=== PATIENT | male | born 1960 | race Caucasian/White ===

== ENCOUNTER 2016-11-25 14:34 | Emergency (ER) | payer OTHER ==
[~2016-11-25] VITALS: Ht 188 cm; Wt 86.3 kg
[~2016-11-25 14:34] MED LIST: ACID REDUCER 1150 MG PO; ADVAIR 250/501 DISK IH; ALDACTONE50 MG PO; AMLODIPINE BESYL5 MG PO; ANAPROX275 M1 PO; ASPIR 8181 M1 PO; ASPIRIN E.C.81 M2 PO; ASPIRIN EC325 M1 PO; ATORVASTATIN CA40 MG PO; ATROVENT H200 INHALA IH; Anusol HC,Anucort-HC PR; B-12 DOTS500 MCG; BACTRIM,SEPT1 TABLET PO; BENTYL20 MG PO; CARAFATE1 GM PO; CHLORDIAZEPOXID25 MG PO; CIPRO500 MG PO; CYANOCOBALAM1000 MC1 PO; Colace PO; DILANTIN100 MG PO; DOXYCYCLINE HY100 M3 PO; Duragesic TD; EMS Nitrostat 0.4 mg SL; FAMOTIDINE PO; FAMOTIDINE20 MG PO; FERRONATE325 MG; FERRONATE325 MG PO; FERROUS GLUCON324 M2 PO; FOLIC ACID1 MG PO; FOLVITE1 M1 PO; FOLVITE1 MG NG; Flagyl PO; GABAPENTIN300 MG PO; GABAPENTIN400 MG PO; HABITROL,NICODE21 MG TD; HYDROCHLOROTHIA25 MG PO; Habitrol,Nicoderm CQ TD; INDOMETHACIN25 MG PO; KEPPRA250 MG PO; KLOR-CON M2020 MEQ PO; LACTINEX,FLO1 PACKET PO; LEVAQUIN500 MG PO; LEVETIRACETAM250 MG PO; LEVETIRACETAM500 MG PO; LEVO-T200 MCG PO; LEVOTHROID,SYN0.1 MG PO; LEVOTHYROXINE100 MCG PO; LEVOTHYROXINE150 MCG PO; LEVOTHYROXINE175 MCG PO; LEVOTHYROXINE200 MC1 PO; LIBRIUM25 MG PO; LIPITOR40 MG PO; LISINOPRIL10 MG PO; LISINOPRIL20 MG PO; LOPRESSOR25 MG PO; LOPRESSOR50 MG PO; LORAZEPAM2 MG PO; Levothroid,Synthroid PO; Lopressor PO; MAG-OXIDE400 MG PO; METOPROLOL TART25 MG PO; METOPROLOL TART50 MG PO; MICRO-K10 ME1 PO; MOBIC15 MG PO; MOTRIN800 MG PO; MULTI-DAY VITA1 EACH PO; Morphine Sulfate IV; NAPROXEN250 M1 PO; NEURONTIN400 MG PO; NICODERM CQ1 EAC1 TD; NICOTINE PATCH1 EAC2 TD; NITROGLYCERIN0.4 MG SL; NITROSTAT0.4 MG SL; NORVASC10 MG PO; NORVASC5 MG PO; Neurontin PO; OMEPRAZOLE20 M2 PO; OMEPRAZOLE20 MG PO; OMEPRAZOLE40 M1 PO; PANTOPRAZOLE SO40 MG PO; PEPCID20 MG PO; PLAVIX75 MG PO; PRAVACHOL10 MG PO; PRAVACHOL20 MG PO; PRAVASTATIN SOD20 MG PO; PREDNISONE10 MG PO; PREVACID SOLUTA30 M1 PO; PRILOSEC40 MG PO; PRINIVIL10 MG PO; PRINIVIL20 MG PO; PROAIR; PROMETHAZINE HC25 M1 PO; PROTONIX40 MG PO; Pepcid PO; Percocet 5/325,Endoc PO; Pravachol PO; RANITIDINE HCL150 M1 PO; SILVADENE20 GM TP; SIMVASTATIN40 M1 PO; SIMVASTATIN40 MG PO; SPIRIVA1 INHALATI IH; SPIRONOLACTONE50 MG PO; SSD25GM TP; SUCRALFATE1 GM PO; SYNTHROID200 MCG PO; THIAMINE HCL100 MG PO; Theragran PO; Thiamine,Vitamin B1 PO; Tums,OsCal PO; ULTRAM50 MG PO; VENTOLIN HFA18 GM IH; VIT D2; VITAMIN B-1100 MG PO; ZANTAC150 MG PO; ZESTRIL,PRINIVI10 M1 PO; ZESTRIL,PRINIVI10 MG PO; ZESTRIL10 MG PO; ZESTRIL20 MG PO; ZITHROMAX Z-PA250 MG PO; ZOFRAN ODT4 MG PO; ZYVOX600 MG PO; Zestril,Prinivil PO; [UNRECOGNIZED DRUG - OTHER] PO
[2016-11-25 17:26] LABS: HEMATOCRIT 34.9 % (38.0-50.0); MCH 34.9 PG (29.0-34.0); MCHC 34.1 G/DL (30.0-36.0); MCV 102.3 FL (86-99); MEAN PLAT.VOLUME 9.1 uM^3 (9.0-12.4); PLATELET COUNT 302 K/uL (156-360); RBC DIS.WIDTH-CV 13.6 % (11.8-14.6); RBC DIS.WIDTH-SD 49.6 % (39-53); RED BLOOD COUNT 3.41 M/uL (4.00-5.50); WHITE BLOOD COUNT 7.8 K/uL (4.1-10.2)
[2016-11-25 17:37] LABS: CHLORIDE 98 mEq/L (99-109); POTASSIUM 3.9 mEq/L (3.7-5.4); SODIUM 139 mEq/L (136-147)
[2016-11-25 17:39] LABS: GLUCOSE 73 mg/dL (70-99)
[2016-11-25 17:40] LABS: ANION GAP 16 MEQ/L (2-14)
[2016-11-25 17:41] LABS: TOTAL BILIRUBIN 0.8 mg/dL (0.0-1.0)
[2016-11-25 17:43] LABS: ALKALINE PHOSPHATASE 135 IU/L (3-129); GFR ESTIMATE (CALCULATED) > 59 mL/min/
[2016-11-25 17:44] LABS: UREA NITROGEN (BUN) 13 mg/dL (9-23)
[2016-11-25 17:46] LABS: LIPASE 24 U/L (1.0-51.0)
[2016-11-25] MEDS ORDERED: CIPRO500 MG PO (21:37)
[2016-11-25] MEDS ORDERED: ULTRAM50 MG PO (21:37)
[2016-11-25] MEDS ORDERED: FLAGYL500 MG PO (21:37)
[2016-11-25 22:08] VITALS: BP 129/82
== END 2016-11-25 22:09 | disposition home or self-care (01) ==
LOC: EME → EDBD 14:34 → EME 22:09
PROVIDERS: Physician Assistant
DX: K52.9 Noninfective gastroenteritis and colitis, unspecified (principal); M79.606 Pain in leg, unspecified; R06.02 Shortness of breath
CPT/HCPCS: 71020; 74176; 80053; 81003; 82140; 83690; 83880; 85027; 93970; 99281; 99284

== ENCOUNTER 2016-12-23 19:44 | Emergency (ER) | payer OTHER ==
[~2016-12-23] VITALS: Ht 188 cm; Wt 68.2 kg
[~2016-12-23 19:44] MED LIST changes: +FLAGYL500 MG PO
[2016-12-23] MEDS ORDERED: ULTRAM50 MG PO (23:48)
[2016-12-24 00:03] VITALS: BP 117/78
== END 2016-12-24 00:03 | disposition home or self-care (01) ==
LOC: EME 19:44
DX: M79.604 Pain in right leg (principal); M79.605 Pain in left leg; G89.29 Other chronic pain
CPT/HCPCS: 93971; 99281; 99283

== ENCOUNTER 2017-02-02 09:15 | Observation (INO) | payer OTHER ==
[~2017-02-02] VITALS: Ht 188 cm; Wt 84.5 kg
[2017-02-02 09:43] LABS: BASOPHIL COUNT 0.1 K/uL (0-0.1); EOSINOPHIL (%) 1.2 % (0-5); EOSINOPHIL COUNT 0.1 K/uL (0-0.3); IMMATURE GRANULOCYTE (%) 0.4 % (0.0-0.7); LYMPHOCYTE COUNT 1.6 K/uL (1.0-2.8); MCH 34.2 PG (29.0-34.0); MCHC 33.7 G/DL (30.0-36.0); MCV 101.7 FL (86-99); MONOCYTE (%) 9.3 % (3-12); MONOCYTE COUNT 0.7 K/uL (0-0.8); PLATELET COUNT 173 K/uL (156-360); RBC DIS.WIDTH-CV 13.1 % (11.8-14.6); RBC DIS.WIDTH-SD 49.4 % (39-53); RED BLOOD COUNT 4.03 M/uL (4.00-5.50); WHITE BLOOD COUNT 7.4 K/uL (4.1-10.2)
[2017-02-02 10:11] LABS: ANION GAP 13 MEQ/L (2-14); CHLORIDE 99 MEQ/L (99-109); SAMPLE HEMOLYSIS CHECK 0; SAMPLE ICTERIC CHECK 0; SAMPLE LIPEMIA CHECK 0; SODIUM 135 MEQ/L (136-147)
[2017-02-02 10:16] LABS: GFR ESTIMATE (CALCULATED) > 59 mL/min/; GLUCOSE 100 mg/dL (70-99); UREA NITROGEN (BUN) 11 mg/dL (9-23)
[2017-02-02 10:21] LABS: TROP-I INTERPRETATION NEGATIVE; TROPONIN-I < 0.01 ng/mL (0.0-0.30)
[2017-02-02] MEDS ORDERED: TYLENOL REGULA325 MG PO (11:42)
[2017-02-02 12:08] VITALS: BP 161/77
[2017-02-02 12:51] LABS: TROP-I INTERPRETATION NEGATIVE; TROPONIN-I < 0.01 ng/mL (0.0-0.30)
[2017-02-02 16:05] VITALS: BP 122/58
[2017-02-02 21:15] LABS: TROP-I INTERPRETATION NEGATIVE; TROPONIN-I 0.01 ng/mL (0.0-0.30)
[2017-02-02 23:45] VITALS: BP 109/53
[2017-02-03 04:47] VITALS: BP 91/52
[2017-02-03 07:54] VITALS: BP 92/55
[2017-02-03] MEDS ORDERED: LOPRESSOR25 MG PO (08:42)
[2017-02-03] MEDS ORDERED: ASPIRIN325 MG PO (08:42)
[2017-02-03] MEDS ORDERED: LISINOPRIL10 MG PO (08:42)
[2017-02-03 10:08] VITALS: BP 93/50
[2017-02-03 10:30] VITALS: BP 105/56
== END 2017-02-03 10:48 | disposition home or self-care (01) ==
LOC: EME → EDBD 09:15 → EME 09:15 → 5WEST 11:05 → EDOF 11:05 → 5WEST 11:57
PROVIDERS: Emergency Medicine; Hospitalist
DX: R07.89 Other chest pain (principal); K70.30 Alcoholic cirrhosis of liver without ascites; F10.10 Alcohol abuse, uncomplicated; I11.0 Hypertensive heart disease with heart failure; I50.32 Chronic diastolic (congestive) heart failure; J44.9 Chronic obstructive pulmonary disease, unspecified; N62 Hypertrophy of breast; I25.10 Atherosclerotic heart disease of native coronary artery without angina pectoris; E03.9 Hypothyroidism, unspecified; E78.5 Hyperlipidemia, unspecified; F20.9 Schizophrenia, unspecified; G40.909 Epilepsy, unspecified, not intractable, without status epilepticus; Z95.5 Presence of coronary angioplasty implant and graft; F17.210 Nicotine dependence, cigarettes, uncomplicated
CPT/HCPCS: 71010; 80048; 84484; 85025; 93005; 94640; 94640 76; 99202; 99281; 99285; G0378; J1650

== ENCOUNTER 2017-03-26 18:10 | Emergency (ER) | payer OTHER ==
[~2017-03-26] VITALS: Ht 188 cm; Wt 82.0 kg
[~2017-03-26 18:10] MED LIST changes: +ASPIRIN325 MG PO; +TYLENOL REGULA325 MG PO
[2017-03-26 19:51] LABS: BASOPHIL COUNT 0.1 K/uL (0-0.1); EOSINOPHIL (%) 0.1 % (0-5); HEMATOCRIT 43.1 % (38.0-50.0); IMMATURE GRANULOCYTE (%) 0.4 % (0.0-0.7); INSTRUMENT ABS NEUTROPHIL CT 5.4 K/uL; LYMPHOCYTE COUNT 1.3 K/uL (1.0-2.8); MCH 32.9 PG (29.0-34.0); MCHC 34.3 G/DL (30.0-36.0); MCV 95.8 FL (86-99); MEAN PLAT.VOLUME 9.5 uM^3 (9.0-12.4); MONOCYTE (%) 5.9 % (3-12); MONOCYTE COUNT 0.4 K/uL (0-0.8); NEUTROPHIL (%) 74.5 % (45-76); NEUTROPHIL COUNT 5.4 K/uL (1.8-6.4); PLATELET COUNT 206 K/uL (156-360); RBC DIS.WIDTH-CV 11.9 % (11.8-14.6); RBC DIS.WIDTH-SD 41.8 % (39-53); WHITE BLOOD COUNT 7.3 K/uL (4.1-10.2)
[2017-03-26 20:01] LABS: CHLORIDE 97 mEq/L (99-109); POTASSIUM 5.3 mEq/L (3.7-5.4); SODIUM 139 mEq/L (136-147)
[2017-03-26 20:03] LABS: GLUCOSE 66 mg/dL (70-99)
[2017-03-26 20:04] LABS: ANION GAP 19 MEQ/L (2-14)
[2017-03-26 20:05] LABS: TOTAL BILIRUBIN 0.8 mg/dL (0.0-1.0)
[2017-03-26 20:06] LABS: ALKALINE PHOSPHATASE 147 IU/L (3-129); SERUM ETHYL ALCOHOL 138 mg/dL
[2017-03-26 20:07] LABS: GFR ESTIMATE (CALCULATED) > 59 mL/min/
[2017-03-26 20:08] LABS: UREA NITROGEN (BUN) 18 mg/dL (9-23)
[2017-03-26 20:10] LABS: LIPASE 25 U/L (1.0-51.0)
[2017-03-26] MEDS ORDERED: CIPRO500 MG PO (22:10)
[2017-03-26] MEDS ORDERED: MIRALAX17 GM PO (22:11)
[2017-03-26 22:17] LABS: ADD MIUA? NO; BILIRUBIN NEGATIVE; BLOOD NEGATIVE; COLOR YELLOW ((YELLOW)); GLUCOSE (STRIP) NEGATIVE; KETONES 80; LEUKOCYTES NEGATIVE; NITRITE NEGATIVE; PROTEIN (STRIP) NEGATIVE; SPECIFIC GRAVITY 1.028 (1.000-1.030); UCUL ADDED? NO
[2017-03-26 22:37] VITALS: BP 139/73
== END 2017-03-26 22:38 | disposition home or self-care (01) ==
LOC: EME 18:10
PROVIDERS: Emergency Medicine
DX: F10.129 Alcohol abuse with intoxication, unspecified (principal); K52.9 Noninfective gastroenteritis and colitis, unspecified; Y90.6 Blood alcohol level of 120-199 mg/100 ml; J45.909 Unspecified asthma, uncomplicated; G40.909 Epilepsy, unspecified, not intractable, without status epilepticus; I25.2 Old myocardial infarction; I10 Essential (primary) hypertension; F17.200 Nicotine dependence, unspecified, uncomplicated; E78.5 Hyperlipidemia, unspecified; Z86.73 Personal history of transient ischemic attack (TIA), and cerebral infarction without residual deficits; Z88.0 Allergy status to penicillin; Z90.49 Acquired absence of other specified parts of digestive tract
CPT/HCPCS: 71260; 74177; 80053; 81003; 83605; 83690; 85025; 99281; 99285; G0480; J2405; J3010; J7030

== ENCOUNTER 2017-05-04 07:13 | Emergency (ER) | payer OTHER ==
[~2017-05-04] VITALS: Ht 188 cm; Wt 81.3 kg
[~2017-05-04 07:13] MED LIST changes: +MIRALAX17 GM PO
[2017-05-04 07:59] LABS: HEMATOCRIT 42.7 % (38.0-50.0); MCH 33.3 PG (29.0-34.0); MCHC 34.9 G/DL (30.0-36.0); MCV 95.3 FL (86-99); MEAN PLAT.VOLUME 10.2 uM^3 (9.0-12.4); PLATELET COUNT 102 K/uL (156-360); RBC DIS.WIDTH-CV 12.6 % (11.8-14.6); RBC DIS.WIDTH-SD 44.4 % (39-53); RED BLOOD COUNT 4.48 M/uL (4.00-5.50); WHITE BLOOD COUNT 8.3 K/uL (4.1-10.2)
[2017-05-04 08:14] LABS: CHLORIDE 89 mEq/L (99-109); POTASSIUM 4.2 mEq/L (3.7-5.4); SODIUM 132 mEq/L (136-147)
[2017-05-04 08:16] LABS: GLUCOSE 75 mg/dL (70-99)
[2017-05-04 08:17] LABS: ANION GAP 27 MEQ/L (2-14)
[2017-05-04 08:18] LABS: PROTHROMBIN TIME 11.1 SEC (10.2-12.9); TOTAL BILIRUBIN 1.9 mg/dL (0.0-1.0)
[2017-05-04 08:19] LABS: ALKALINE PHOSPHATASE 164 IU/L (3-129); SERUM ETHYL ALCOHOL 73 mg/dL
[2017-05-04 08:20] LABS: GFR ESTIMATE (CALCULATED) > 59 mL/min/; PTT 23.4 SEC (25-37)
[2017-05-04 08:21] LABS: UREA NITROGEN (BUN) 26 mg/dL (9-23)
[2017-05-04 08:23] LABS: LIPASE 38 U/L (1.0-51.0)
[2017-05-04] MEDS ORDERED: ZOFRAN4 MG PO (10:18)
[2017-05-04 12:20] VITALS: BP 132/75
== END 2017-05-04 12:21 | disposition home or self-care (01) ==
LOC: EME → EDBD 07:13 → EME 07:13
PROVIDERS: Emergency Medicine
DX: R11.10 Vomiting, unspecified (principal); F10.10 Alcohol abuse, uncomplicated; K74.60 Unspecified cirrhosis of liver; Y90.3 Blood alcohol level of 60-79 mg/100 ml; I25.2 Old myocardial infarction; E03.9 Hypothyroidism, unspecified; J45.909 Unspecified asthma, uncomplicated; E78.5 Hyperlipidemia, unspecified; I10 Essential (primary) hypertension; Z86.73 Personal history of transient ischemic attack (TIA), and cerebral infarction without residual deficits; Z95.5 Presence of coronary angioplasty implant and graft; F17.200 Nicotine dependence, unspecified, uncomplicated; K21.9 Gastro-esophageal reflux disease without esophagitis; Z88.0 Allergy status to penicillin
CPT/HCPCS: 74177; 80053; 83690; 85027; 85610; 85730; 99281; 99285; G0480; J1630; J2405; J7030

== ENCOUNTER 2017-09-01 17:54 | Emergency (ER) | payer OTHER ==
[~2017-09-01] VITALS: Ht 188 cm; Wt 98.5 kg
[~2017-09-01 17:54] MED LIST changes: +ZOFRAN4 MG PO
[2017-09-01 18:53] LABS: BASOPHIL COUNT 0.1 K/uL (0-0.1); EOSINOPHIL (%) 6.3 % (0-5); EOSINOPHIL COUNT 0.4 K/uL (0-0.3); HEMATOCRIT 36.7 % (38.0-50.0); IMMATURE GRANULOCYTE (%) 0.9 % (0.0-0.7); IMMATURE GRANULOCYTE COUNT 0.1 K/uL; INSTRUMENT ABS NEUTROPHIL CT 2.1 K/uL; LYMPHOCYTE COUNT 2.9 K/uL (1.0-2.8); MCH 34.3 PG (29.0-34.0); MCHC 35.7 G/DL (30.0-36.0); MCV 96.1 FL (86-99); MEAN PLAT.VOLUME 9.5 uM^3 (9.0-12.4); MONOCYTE (%) 5.6 % (3-12); MONOCYTE COUNT 0.3 K/uL (0-0.8); NEUTROPHIL (%) 35.6 % (45-76); NEUTROPHIL COUNT 2.1 K/uL (1.8-6.4); PLATELET COUNT 112 K/uL (156-360); RBC DIS.WIDTH-CV 13.2 % (11.8-14.6); RBC DIS.WIDTH-SD 46.7 % (39-53); RED BLOOD COUNT 3.82 M/uL (4.00-5.50); WHITE BLOOD COUNT 5.9 K/uL (4.1-10.2)
[2017-09-01 19:13] LABS: CHLORIDE 93 mEq/L (99-109); POTASSIUM 3.5 mEq/L (3.7-5.4); SODIUM 135 mEq/L (136-147)
[2017-09-01 19:14] LABS: MAGNESIUM 1.4 mg/dL (1.3-2.7)
[2017-09-01 19:16] LABS: GLUCOSE 149 mg/dL (70-99)
[2017-09-01 19:17] LABS: ANION GAP 17 MEQ/L (2-14); TOTAL BILIRUBIN 0.4 mg/dL (0.0-1.0)
[2017-09-01 19:18] LABS: SERUM ETHYL ALCOHOL 265 mg/dL
[2017-09-01 19:19] LABS: ALKALINE PHOSPHATASE 127 IU/L (3-129); GFR ESTIMATE (CALCULATED) > 59 mL/min/ (58.99-99999)
[2017-09-01 19:20] LABS: UREA NITROGEN (BUN) 14 mg/dL (9-23)
[2017-09-01 19:22] LABS: TROP-I INTERPRETATION NEGATIVE; TROPONIN-I < 0.01 ng/mL (0.0-0.30)
[2017-09-01 19:23] LABS: LIPASE 118 U/L (1.0-51.0)
[2017-09-01 19:36] LABS: ADD MIUA? NO; BILIRUBIN NEGATIVE; BLOOD NEGATIVE; COLOR YELLOW ((YELLOW)); GLUCOSE (STRIP) NEGATIVE; KETONES NEGATIVE; LEUKOCYTES NEGATIVE; NITRITE NEGATIVE; PROTEIN (STRIP) NEGATIVE; SPECIFIC GRAVITY 1.006 (1.000-1.030); UROBILINOGEN 0.2 MG/DL (0.2-1.0)
[2017-09-01] MEDS ORDERED: LEVOTHYROXINE200 MC1 PO (21:16)
[2017-09-01 21:41] VITALS: BP 100/59
== END 2017-09-01 22:21 | disposition home or self-care (01) ==
LOC: EME 17:54
PROVIDERS: Physician Assistant
DX: F10.129 Alcohol abuse with intoxication, unspecified (principal); Y90.8 Blood alcohol level of 240 mg/100 ml or more; Z59.0 Homelessness; E78.5 Hyperlipidemia, unspecified; I10 Essential (primary) hypertension; E03.9 Hypothyroidism, unspecified; I25.2 Old myocardial infarction; K74.60 Unspecified cirrhosis of liver; F20.9 Schizophrenia, unspecified; J45.909 Unspecified asthma, uncomplicated; K21.9 Gastro-esophageal reflux disease without esophagitis; Z86.73 Personal history of transient ischemic attack (TIA), and cerebral infarction without residual deficits; Z95.5 Presence of coronary angioplasty implant and graft; Z88.0 Allergy status to penicillin; F17.200 Nicotine dependence, unspecified, uncomplicated
CPT/HCPCS: 71020; 80053; 81003; 83690; 83735; 84484; 85025; 93005; 99281; 99285; G0480; J7030

== ENCOUNTER 2017-09-20 09:43 | Emergency (ER) | payer OTHER ==
[~2017-09-20] VITALS: Ht 188 cm; Wt 98.0 kg
[2017-09-20 10:08] VITALS: BP 99/61
[2017-09-20] MEDS ORDERED: TEARS AGAIN EYE5 GM BOTH EYES (12:42)
== END 2017-09-20 13:05 | disposition home or self-care (01) ==
LOC: EME 09:43
DX: H04.123 Dry eye syndrome of bilateral lacrimal glands (principal); F10.10 Alcohol abuse, uncomplicated; I10 Essential (primary) hypertension; I25.2 Old myocardial infarction; F17.200 Nicotine dependence, unspecified, uncomplicated; Z79.01 Long term (current) use of anticoagulants; Z79.82 Long term (current) use of aspirin; Z95.5 Presence of coronary angioplasty implant and graft; Z88.0 Allergy status to penicillin
CPT/HCPCS: 99281; 99284

== ENCOUNTER 2017-10-06 15:53 | Emergency (ER) | payer OTHER ==
[~2017-10-06] VITALS: Ht 188 cm; Wt 81.6 kg
[~2017-10-06 15:53] MED LIST changes: +TEARS AGAIN EYE5 GM BOTH EYES
[2017-10-06 16:57] VITALS: BP 160/97
== END 2017-10-06 16:59 | disposition home or self-care (01) ==
LOC: EME 15:53
DX: G89.29 Other chronic pain (principal); M79.604 Pain in right leg; M79.605 Pain in left leg; F10.129 Alcohol abuse with intoxication, unspecified; E78.5 Hyperlipidemia, unspecified; I10 Essential (primary) hypertension; K74.60 Unspecified cirrhosis of liver; I25.2 Old myocardial infarction; F17.200 Nicotine dependence, unspecified, uncomplicated; K21.9 Gastro-esophageal reflux disease without esophagitis; E03.9 Hypothyroidism, unspecified; Z86.73 Personal history of transient ischemic attack (TIA), and cerebral infarction without residual deficits; J45.909 Unspecified asthma, uncomplicated; R56.9 Unspecified convulsions; Z95.5 Presence of coronary angioplasty implant and graft; Z88.0 Allergy status to penicillin
CPT/HCPCS: 99281; 99284; J1885

== ENCOUNTER 2017-10-28 19:08 | Inpatient (IN) | payer OTHER ==
[~2017-10-28] VITALS: Ht 188 cm; Wt 93.8 kg
[2017-10-28 19:55] LABS: HEMATOCRIT 37.6 % (38.0-50.0); HEMOGLOBIN 13.3 G/DL (12.5-16.6); MCH 37.7 PG (29.0-34.0); MCHC 35.4 G/DL (30.0-36.0); MCV 106.5 FL (86-99); PLATELET COUNT 132 K/uL (156-360); RBC DIS.WIDTH-CV 14.6 % (11.8-14.6); RBC DIS.WIDTH-SD 57.7 % (39-53); RED BLOOD COUNT 3.53 M/uL (4.00-5.50); WHITE BLOOD COUNT 6.4 K/uL (4.1-10.2)
[2017-10-28 20:08] LABS: CHLORIDE 99 mEq/L (99-109); SODIUM 140 mEq/L (136-147)
[2017-10-28 20:09] LABS: GLUCOSE 90 mg/dL (70-99)
[2017-10-28 20:13] LABS: CREATININE 1.1 mg/dL (0.6-1.3); GFR ESTIMATE (CALCULATED) > 59 mL/min/ (58.99-99999)
[2017-10-28 20:14] LABS: UREA NITROGEN (BUN) 13 mg/dL (9-23)
[2017-10-28 20:22] LABS: SERUM ETHYL ALCOHOL 317 mg/dL
[2017-10-28 20:54] LABS: APPEARANCE CLEAR ((CLEAR)); BILIRUBIN NEGATIVE; BLOOD NEGATIVE; COLOR YELLOW ((YELLOW)); GLUCOSE (STRIP) NEGATIVE; KETONES NEGATIVE; LEUKOCYTES NEGATIVE; NITRITE NEGATIVE; PROTEIN (STRIP) 30; SPECIFIC GRAVITY 1.014 (1.000-1.030); UCUL ADDED? NO
[2017-10-29 05:24] LABS: TROP-I INTERPRETATION NEGATIVE; TROPONIN-I 0.01 ng/mL (0.0-0.30)
[2017-10-29] MEDS ORDERED: ADVAIR 250/501 DISK IH (09:20)
[2017-10-29] MEDS ORDERED: SPIRIVA18 MCG IH ×2 (09:21→09:22)
[2017-10-29 11:59] VITALS: BP 131/70
[2017-10-29 15:39] VITALS: BP 128/63
[2017-10-29 17:05] LABS: CHLORIDE 100 MEQ/L (99-109); POTASSIUM 4.3 MEQ/L (3.7-5.4); SODIUM 135 MEQ/L (136-147)
[2017-10-29 17:13] LABS: GFR ESTIMATE (CALCULATED) > 59 mL/min/ (58.99-99999); GLUCOSE 236 mg/dL (70-99); UREA NITROGEN (BUN) 10 mg/dL (9-23)
[2017-10-29 17:14] LABS: TROP-I INTERPRETATION NEGATIVE; TROPONIN-I 0.01 ng/mL (0.0-0.30)
[2017-10-29 19:40] VITALS: BP 140/74
[2017-10-29 23:42] VITALS: BP 146/72
[2017-10-30 03:57] VITALS: BP 136/70
[2017-10-30 06:05] LABS: HEMATOCRIT 35.3 % (38.0-50.0); HEMOGLOBIN 12.1 G/DL (12.5-16.6); MCH 37.2 PG (29.0-34.0); MCHC 34.3 G/DL (30.0-36.0); MCV 108.6 FL (86-99); PLATELET COUNT 109 K/uL (156-360); RBC DIS.WIDTH-CV 14.1 % (11.8-14.6); RBC DIS.WIDTH-SD 56.6 % (39-53); RED BLOOD COUNT 3.25 M/uL (4.00-5.50); WHITE BLOOD COUNT 6.7 K/uL (4.1-10.2)
[2017-10-30 06:31] LABS: CHLORIDE 99 MEQ/L (99-109); CREATININE 0.8 MG/DL (0.6-1.3); GFR ESTIMATE (CALCULATED) > 59 mL/min/ (58.99-99999); GLUCOSE 145 mg/dL (70-99); MAGNESIUM 1.9 mg/dl (1.3-2.7); POTASSIUM 3.7 MEQ/L (3.7-5.4); SODIUM 135 MEQ/L (136-147); UREA NITROGEN (BUN) 9 mg/dL (9-23)
[2017-10-30 08:51] VITALS: BP 121/63
[2017-10-30 11:47] VITALS: BP 125/70
[2017-10-30 15:07] VITALS: BP 138/69
[2017-10-30 19:05] VITALS: BP 145/73
[2017-10-30 23:03] VITALS: BP 123/78
[2017-10-31 03:42] VITALS: BP 140/69
[2017-10-31 08:43] VITALS: BP 143/72
[2017-10-31 08:46] VITALS: BP 153/77
[2017-10-31 08:47] VITALS: BP 140/75
[2017-10-31 10:02] LABS: CHLORIDE 97 MEQ/L (99-109); CREATININE 0.9 MG/DL (0.6-1.3); GFR ESTIMATE (CALCULATED) > 59 mL/min/ (58.99-99999); GLUCOSE 127 mg/dL (70-99); POTASSIUM 3.7 MEQ/L (3.7-5.4); SODIUM 135 MEQ/L (136-147); UREA NITROGEN (BUN) 12 mg/dL (9-23)
== END 2017-10-31 10:48 | disposition left against medical advice (07) | DRG 894 ==
LOC: EME 19:08 → EDOF 10-29 05:51 → ENRESERV 10-29 05:53 → EDOF 10-29 06:01 → ENRESERV 10-29 11:09 → 5WEST 10-29 11:45
PROVIDERS: Family Medicine; Hospitalist; Physician Assistant
DX: F10.239 Alcohol dependence with withdrawal, unspecified (principal); F10.229 Alcohol dependence with intoxication, unspecified; Y90.8 Blood alcohol level of 240 mg/100 ml or more; I95.1 Orthostatic hypotension; J44.1 Chronic obstructive pulmonary disease with (acute) exacerbation; T65.291A Toxic effect of other tobacco and nicotine, accidental (unintentional), initial encounter; E83.42 Hypomagnesemia; E87.2 Acidosis; I11.0 Hypertensive heart disease with heart failure; I50.32 Chronic diastolic (congestive) heart failure; R56.9 Unspecified convulsions; G93.9 Disorder of brain, unspecified; I25.10 Atherosclerotic heart disease of native coronary artery without angina pectoris; E86.0 Dehydration; E03.9 Hypothyroidism, unspecified; K70.30 Alcoholic cirrhosis of liver without ascites; F17.200 Nicotine dependence, unspecified, uncomplicated; Z79.82 Long term (current) use of aspirin; Z95.5 Presence of coronary angioplasty implant and graft; Z80.1 Family history of malignant neoplasm of trachea, bronchus and lung
CPT/HCPCS: 70450; 71046; 71275; 80048; 81003; 82948; 83735; 84484; 85027; 85379; 87502; 90686; 93005; 94640; 94640 76; 94799; 97530 GP; 99202; 99281; 99285; G0480; G8978 GP CJ; G8979 GP CI; J1644; J2920; J3411; J3475; J7030

== ENCOUNTER 2017-11-23 14:55 | Emergency (ER) | payer OTHER ==
[~2017-11-23] VITALS: Ht 188 cm; Wt 90.9 kg
[~2017-11-23 14:55] MED LIST changes: +SPIRIVA18 MCG IH
[2017-11-23 15:31] LABS: HEMATOCRIT 37.9 % (38.0-50.0); HEMOGLOBIN 13.4 G/DL (12.5-16.6); MCH 37.2 PG (29.0-34.0); MCHC 35.4 G/DL (30.0-36.0); MCV 105.3 FL (86-99); PLATELET COUNT 99 K/uL (156-360); RBC DIS.WIDTH-CV 12.5 % (11.8-14.6); RBC DIS.WIDTH-SD 49.1 % (39-53); WHITE BLOOD COUNT 6.8 K/uL (4.1-10.2)
[2017-11-23 15:42] LABS: ALBUMIN 4.3 g/dL (3.2-4.8); CHLORIDE 93 mEq/L (99-109); POTASSIUM 3.5 mEq/L (3.7-5.4); SODIUM 135 mEq/L (136-147)
[2017-11-23 15:45] LABS: GLUCOSE 71 mg/dL (70-99); TOTAL PROTEIN 8.7 g/dL (6.4-8.3)
[2017-11-23 15:46] LABS: TOTAL BILIRUBIN 0.8 mg/dL (0.0-1.0)
[2017-11-23 15:47] LABS: SERUM ETHYL ALCOHOL 336 mg/dL
[2017-11-23 15:48] LABS: ALKALINE PHOSPHATASE 179 IU/L (3-129); CREATININE 0.9 mg/dL (0.6-1.3); GFR ESTIMATE (CALCULATED) > 59 mL/min/ (58.99-99999)
[2017-11-23 15:49] LABS: UREA NITROGEN (BUN) 12 mg/dL (9-23)
[2017-11-23 15:50] LABS: AST (GOT) 70 IU/L (2-34)
[2017-11-23 15:51] LABS: ALT (GPT) 28 IU/L (3-49)
[2017-11-23 15:52] LABS: LIPASE 32 U/L (1.0-51.0)
[2017-11-23] MEDS ORDERED: BENTYL10 MG PO (18:18)
[2017-11-23] MEDS ORDERED: ZOFRAN ODT4 MG PO (18:18)
[2017-11-23 19:03] VITALS: BP 130/77
== END 2017-11-23 19:05 | disposition home or self-care (01) ==
LOC: EME 14:55
PROVIDERS: Nurse Practitioner Family
DX: K52.9 Noninfective gastroenteritis and colitis, unspecified (principal); I10 Essential (primary) hypertension; J45.909 Unspecified asthma, uncomplicated; K21.9 Gastro-esophageal reflux disease without esophagitis; K74.60 Unspecified cirrhosis of liver; E78.5 Hyperlipidemia, unspecified; E03.9 Hypothyroidism, unspecified; R56.9 Unspecified convulsions; F20.9 Schizophrenia, unspecified; I25.2 Old myocardial infarction; F17.200 Nicotine dependence, unspecified, uncomplicated; Z86.73 Personal history of transient ischemic attack (TIA), and cerebral infarction without residual deficits; Z90.49 Acquired absence of other specified parts of digestive tract; Z88.0 Allergy status to penicillin
CPT/HCPCS: 74177; 80053; 83690; 85027; 99281; 99284; G0480; J2405; J3010; J7030

== ENCOUNTER 2017-12-28 18:51 | Emergency (ER) | payer OTHER ==
[~2017-12-28] VITALS: Ht 188 cm; Wt 92.8 kg
[~2017-12-28 18:51] MED LIST changes: +BENTYL10 MG PO
[2017-12-29] VITALS: BP 128/82
== END 2017-12-29 00:02 | disposition home or self-care (01) ==
LOC: EME 18:51
DX: Z00.00 Encounter for general adult medical examination without abnormal findings (principal); Q27.30 Arteriovenous malformation, site unspecified; E78.5 Hyperlipidemia, unspecified; I10 Essential (primary) hypertension; I25.2 Old myocardial infarction; Z86.73 Personal history of transient ischemic attack (TIA), and cerebral infarction without residual deficits; K74.60 Unspecified cirrhosis of liver; K21.9 Gastro-esophageal reflux disease without esophagitis; E03.9 Hypothyroidism, unspecified; J45.909 Unspecified asthma, uncomplicated; F17.200 Nicotine dependence, unspecified, uncomplicated; Z95.5 Presence of coronary angioplasty implant and graft; Z88.0 Allergy status to penicillin
CPT/HCPCS: 70450; 99281; 99284

== ENCOUNTER 2018-04-12 16:33 | Emergency (ER) | payer OTHER ==
[~2018-04-12] VITALS: Ht 188 cm; Wt 98.0 kg
[2018-04-12] MEDS ORDERED: BACTRIM,SEPT1 TABLET PO (17:34)
[2018-04-12 17:44] VITALS: BP 144/86
== END 2018-04-12 17:45 | disposition home or self-care (01) ==
LOC: EME 16:33
DX: L03.113 Cellulitis of right upper limb (principal); I10 Essential (primary) hypertension; E78.5 Hyperlipidemia, unspecified; F17.200 Nicotine dependence, unspecified, uncomplicated; Z88.0 Allergy status to penicillin
CPT/HCPCS: 99281; 99283